=== PATIENT | female | born 1990 | race Two or more races ===

== ENCOUNTER 2021-08-03 14:30 | Inpatient (IN) | payer OTHER ==
[~2021-08-03] VITALS: Ht 162.6 cm; Wt 69.4 kg
[2021-08-22] MEDS ORDERED: VITAMIN C500 M6 PO (09:51)
[2021-08-22] MEDS ORDERED: PRENATAL CAPLE1 EAC1 PO (09:51)
== END 2021-08-24 19:16 | disposition home or self-care (01) | DRG 807 ==
LOC: LDR 08-17 14:30 → OB/GYN 08-22 16:40
PROVIDERS: ADMIT Obstetrics & Gynecology; ATTEND Obstetrics & Gynecology
PROC: 10E0XZZ Delivery of Products of Conception, External Approach (ICD-10-PCS; principal; 2021-08-22)
PROC: 4A1HXCZ Monitoring of Products of Conception, Cardiac Rate, External Approach (ICD-10-PCS; 2021-08-22)
DX: O80 Encounter for full-term uncomplicated delivery (principal); Z37.0 Single live birth; Z3A.40 40 weeks gestation of pregnancy; Z20.822 Contact with and (suspected) exposure to COVID-19